=== PATIENT | female | born 1940 | race Caucasian/White ===

== ENCOUNTER 2021-08-23 23:17 | Emergency (ER) | payer MEDICARE, OTHER | END 2021-08-24 03:19 | disposition home or self-care (01) | LOC: JD.ED 23:17 | DX: K59.00 Constipation, unspecified (principal); E78.00 Pure hypercholesterolemia, unspecified; I10 Essential (primary) hypertension; E03.9 Hypothyroidism, unspecified; Z88.1 Allergy status to other antibiotic agents; Z79.899 Other long term (current) drug therapy; Z79.82 Long term (current) use of aspirin | CPT/HCPCS: 74019; 74019-26; 99283 ==